=== PATIENT | male | born 1940 | race Caucasian/White ===

== ENCOUNTER → 2019-06-29 14:35 | Outpatient (BNVA) | payer MEDICARE, SELFPAY | PROVIDERS: Family Provider Pediatrics; PCP Pediatrics; Visit Provider Urology | DX: C67.8 Malignant neoplasm of overlapping sites of bladder (principal); R33.8 Other retention of urine | CPT/HCPCS: 81001 ==

== ENCOUNTER → 2019-11-02 15:13 | Outpatient (BNVA) | payer MEDICARE, SELFPAY | PROVIDERS: Family Provider Pediatrics; PCP Pediatrics; Visit Provider Urology | DX: C67.8 Malignant neoplasm of overlapping sites of bladder (principal) | CPT/HCPCS: 81001 ==

== ENCOUNTER → 2020-05-09 13:34 | Outpatient (BNVA) | payer MEDICARE, SELFPAY | PROVIDERS: Family Provider Pediatrics; PCP Pediatrics; Visit Provider Urology | DX: N40.1 Benign prostatic hyperplasia with lower urinary tract symptoms (principal); C67.8 Malignant neoplasm of overlapping sites of bladder | CPT/HCPCS: 81003; 88112 ==

== ENCOUNTER → 2020-12-20 09:41 | Outpatient (BNVA) | payer MEDICARE, SELFPAY | DX: N40.1 Benign prostatic hyperplasia with lower urinary tract symptoms (principal); C67.8 Malignant neoplasm of overlapping sites of bladder | CPT/HCPCS: 81003 ==

== ENCOUNTER → 2021-06-26 13:22 | Outpatient (BNVA) | payer MEDICARE, SELFPAY | PROVIDERS: Family Provider Pediatrics; PCP Pediatrics; Visit Provider Urology | DX: C67.9 Malignant neoplasm of bladder, unspecified (principal); C67.8 Malignant neoplasm of overlapping sites of bladder; N40.1 Benign prostatic hyperplasia with lower urinary tract symptoms | CPT/HCPCS: 81003; 88112 ==

== ENCOUNTER → 2021-08-27 13:09 | Outpatient (BNVA) | payer MEDICARE, SELFPAY | PROVIDERS: Family Provider Pediatrics; PCP Pediatrics; Visit Provider Urology | DX: C67.9 Malignant neoplasm of bladder, unspecified (principal); F17.220 Nicotine dependence, chewing tobacco, uncomplicated; C67.8 Malignant neoplasm of overlapping sites of bladder | CPT/HCPCS: 81003 ==

== ENCOUNTER → 2021-11-29 13:25 | Outpatient (BNVA) | payer MEDICARE, SELFPAY | PROVIDERS: Family Provider Pediatrics; PCP Pediatrics; Visit Provider Urology | DX: C67.8 Malignant neoplasm of overlapping sites of bladder (principal); N40.1 Benign prostatic hyperplasia with lower urinary tract symptoms | CPT/HCPCS: 52000; 81003; 88112 ==

== ENCOUNTER → 2022-03-14 14:10 | Outpatient (BNVA) | payer MEDICARE, SELFPAY | PROVIDERS: Family Provider Pediatrics; PCP Pediatrics; Visit Provider Urology | DX: N40.1 Benign prostatic hyperplasia with lower urinary tract symptoms (principal); C67.8 Malignant neoplasm of overlapping sites of bladder | CPT/HCPCS: 52000; 81003; 88112 ==

== ENCOUNTER → 2022-06-17 14:12 | Outpatient (BNVA) | payer MEDICARE, SELFPAY | PROVIDERS: Family Provider Pediatrics; PCP Pediatrics; Visit Provider Urology | DX: N40.1 Benign prostatic hyperplasia with lower urinary tract symptoms (principal); R33.9 Retention of urine, unspecified; C67.8 Malignant neoplasm of overlapping sites of bladder | CPT/HCPCS: 52000; 81003 ==

== ENCOUNTER 2023-02-22 09:50 | Emergency (ER) | payer MEDICARE, SELFPAY ==
[2023-02-22 10:04] VITALS: BP 172/76; PULSE 68; RESP 18; TEMP 37.7; O2SAT 97
--- NOTE | 2023-02-22 10:27 | XRR_ITS ---
PROCEDURE INFORMATION: Exam: XR Chest Exam date and time: 02/22/2023 10:35 AM Age: 82 years old Clinical indication: Cough TECHNIQUE: Imaging protocol: Radiologic exam of the chest. Views: 1 view. COMPARISON: CT abdomen pelvis wo/w [id number] 01/09/2017 10:22 AM FINDINGS: Lungs: Mild reticulation of the lung bases may represent atelectasis or scarring. No consolidation. Pleural spaces: Unremarkable. No pleural effusion. No pneumothorax. Heart/Mediastinum: Unremarkable. No cardiomegaly. Vasculature: Aortic arch atherosclerotic calcification. Bones/joints: Degenerative changes along the spine and acromioclavicular joints. XR/XR chest 1V portable [id number] IMPRESSION: No acute findings.
--- NOTE | 2023-02-22 10:28 | ED_ITS ---
HPI - General Adult General: Chief complaint: General Medical Stated complaint: sore throat Time Seen by Provider: 02/22/23 09:52 Source: patient Mode of arrival: ambulatory History of Present Illness: 82-year-old male presents to the emergency room with complaints of sore throat difficulty swallowing low-grade fever no rash. He is able to swallow fluids at any difficulty. He is mildly productive cough. He said it began after he took 2 doses of his blood pressure medication in a single day. Onset (ago): day(s) (4) Severity: mild Quality: sharp Pain Consistency: constant Relieving factors: none Exacerbating factors: none Associated symptoms: Deny chest pain, confusion, cough, diaphoresis, decreased appetite, dyspnea, fevers/chills, headache(s), malaise, nausea, rash, palpitations, seizures, short of breath, syncope, vomiting or weakness Treatments prior to arrival: none Review of Systems Const: Denies: fever(s), chills, malaise or diaphoresis ENMT: Reports: throat pain; Denies: ear or mastoid pain, nasal discharge or nasal congestion Card: Denies: chest pain, palpitations or syncope Resp: Denies: dyspnea GI: Denies: abdominal pain, nausea or vomiting : Denies: flank pain, dysuria, urinary frequency or urinary urgency Skin/Breast: Denies: rash Neuro: Denies: headache(s) or confusion PFSH ED PFSH: Medical History Benign prostatic hyperplasia with lower urinary tract symptoms Bladder cancer H/O hydrocele Surgical History H/O transurethral destruction of bladder lesion S/P appendectomy S/P hernia repair Family History Mother , 84 Stroke CAD (coronary artery disease) Hypertension Father , 81 Cancer bladder Brother Cancer Lung, colon Social History Smoking and tobacco status: former smoker Alcohol intake: current Alcohol intake frequency: few times a month Substance/Drug Use: never Marital status: Current occupational status: retired Physical Exam Const: GENERAL APPEARANCE: cooperative and comfortable ORIENTATION/CONSCIOUSNESS: Yes awake, Yes oriented to person, Yes oriented to place and Yes oriented to time HENMT: COMMON NORMALS: normocephalic, atraumatic, hearing grossly normal bilaterally, external ears normal, EAC's normal, TM's normal bilaterally and Normal nasal mucous membranes and turbinates present HEAD & SCALP: normocephalic and atraumatic NOSE: Normal nasal mucous membranes and turbinates present EXTERNAL EAR: Yes external ears normal [employer] Y CANAL: EAC's normal TYMPANIC MEMBRANE: TM's normal bilaterally Eye: COMMON NORMALS: Equal, round and reactive pupils present, EOMs intact bilaterally, conjunctivae normal and no scleral icterus CONJUNCTIVA: Yes conjunctivae normal PUPIL: Yes Equal, round and reactive pupils present Neck/C-Spine: COMMON NORMALS: full ROM, no lymphadenopathy, supple and no JVD Lymph: LYMPHATIC: no lymphadenopathy noted and no lymphedema noted Resp: COMMON NORMALS: normal respiratory effort, No retractions, No use of accessory muscles and clear to auscultation bilaterally AUSCULTATION: clear to auscultation bilaterally Cardio: COMMON NORMALS: no JVD, regular rate, regular rhythm and No murmurs present (Cardio) RATE: regular rate RHYTHM: regular rhythm GI: COMMON NORMALS: Soft to palpation and No hepatosplenomegaly present AUSCULTATION: Yes normoactive bowel sounds PALPATION: Yes Soft to palpation, No Tenderness to palpation present (GI), No Guarding due to palpation present (GI) and Yes No hepatosplenomegaly present Extremity: COMMON NORMALS: normal to inspection, capillary refill normal, no clubbing, cyanosis or edema, no calf tenderness and no pedal edema Neuro: SENSORIUM/ORIENTATION: Yes oriented to person, Yes oriented to place and Yes oriented to time Skin: COMMON NORMALS: no rashes or lesions noted GENERAL SKIN EXAM: no rashes or lesions noted Course Vital Signs: Vital signs: Vital Signs Temperature 100 F H 02/22/23 10:04 Pulse Rate 68 02/22/23 10:04 Respiratory Rate 18 02/22/23 10:04 Blood Pressure 172/76 02/22/23 10:04 Pulse Oximetry 97 02/22/23 10:04 Oxygen Delivery Me thod Room Air 02/22/23 10:04 [facility] - General Adult Medical Decision Making Rapid strep negative patient is able to swallow sam of fluids. Do not believe he has any obstruction he has no stridor. Chest x-ray unremarkable. White count normal we will start him on steroid taper and clindamycin follow-up with his primary care did give him 10 of dexamethasone here prior to discharge. Medical Records I reviewed the patient's medical records. Lab Data I reviewed the patient's lab results. 02/22/23 10:33 02/22/23 10:33 Radiology Impressions Chest X-Ray 02/22/23 10:27 IMPRESSION: No acute findings. Laboratory Results WBC 7.35 10^3/uL (3.29-11.43) 02/22/23 10:33 RBC 4.85 10^6/uL (3.85-5.65) 02/22/23 10:33 Hgb 15.50 g/dL (11.27-16.99) 02/22/23 10:33 Hct 46.7 % (37-53) 02/22/23 10:33 MCV 96.3 fl (82-101) 02/22/23 10:33 MCH 32.0 pg (27-33) 02/22/23 10:33 MCHC 33.2 g/dL (30-55) 02/22/23 10:33 RDW 12.8 % (12.1-15.1) 02/22/23 10:33 Plt Count 124 10^3/cmm (157-399) L 02/22/23 10:33 MPV 10.1 fL (7.4-10.4) 02/22/23 10:33 Neut % (Auto) 63.3 % 02/22/23 10:33 Lymph % (Auto) 20.7 % 02/22/23 10:33 [place] % (Auto) 15.4 % 02/22/23 10:33 Eos % (Auto) 0.0 % 02/22/23 10:33 Baso % (Auto) 0.3 % 02/22/23 10:33 Neut # (Auto) 4.66 10^3/uL (1.8-7.7) 02/22/23 10:33 Lymph # (Auto) 1.5 10^3/uL (0.8-4.8) 02/22/23 10:33 [place] # (Auto) 1.1 10^3/uL (0.2-0.9) H 02/22/23 10:33 Eos # (Auto) 0.0 10^3/uL (0.0-0.8) 02/22/23 10:33 Baso # (Auto) 0.0 10^3/uL (0.0-0.1) 02/22/23 10:33 Nucleated RBC % (auto) 0 % 02/22/23 10:33 Nucleated RBCs # 0.0 /100WBC 02/22/23 10:33 Sodium 138 mmol/L (136-145) 02/22/23 10:33 Potassium 3.2 mmol/L (3.5-5.1) L 02/22/23 10:33 Chloride 99 mmol/L (98-107) 02/22/23 10:33 Carbon Dioxide 27 mmol/L (22-29) 02/22/23 10:33 Anion Gap 15.2 (5-19) 02/22/23 10:33 BUN 19 mg/dL (8-23) 02/22/23 10:33 Creatinine 0.9 mg/dL (0.7-1.2) 02/22/23 10:33 GFR Calculation Not Reportable 02/22/23 10:33 Glucose 95 mg/dL (65-115) 02/22/23 10:33 Calculated Osmolality 288 mOsm/kg (285-295) 02/22/23 10:33 Calcium 9.1 mg/dL (8.5-10.5) 02/22/23 10:33 Total Bilirubin 0.6 mg/dL (0.15-1.2) 02/22/23 10:33 AST 38 U/L (0-40) 02/22/23 10:33 ALT 28 U/L (0-41) 02/22/23 10:33 Alkaline Phosphatase 64 U/L (40-130) 02/22/23 10:33 Total Protein 7.0 g/dL (6.6-8.7) 02/22/23 10:33 Albumin 3.9 g/dL (3.5-5.2) 02/22/23 10:33 Globulin 3.1 g/dL (1.3-4.6) 02/22/23 10:33 Urine Color Dara (Yellow) 02/22/23 11:00 Urine Appearance Clear (CLEAR) 02/22/23 11:00 Urine pH 6 (5-7) 02/22/23 11:00 Ur Specific [place] 1.015 (1.005-1.030) 02/22/23 11:00 Urine Protein 1+ (Negative) H 02/22/23 11:00 Urine Glucose (UA) Norm (Normal) 02/22/23 11:00 Urine Ketones 2+ (Negative) H 02/22/23 11:00 Urine Blood 3+ (Negative) H 02/22/23 11:00 Urine Nitrate Negative (Negative) 02/22/23 11:00 Urine Bilirubin 1+ (Negative) H 02/22/23 11:00 Urine Urobilinogen Norm mg/dL (Negative) 02/22/23 11:00 Ur Leukocyte Esterase Negative (Negative) 02/22/23 11:00 Urine RBC >100 /hpf (0-2) H 02/22/23 11:00 Urine WBC 5-10 /hpf (0-5) H 02/22/23 11:00 Ur Squamous Epith Cells 0-4 /hpf (0-5) H 02/22/23 11:00 Amorphous Sediment Not Reportable 02/22/23 11:00 Urine Bacteria Trace /hpf (NONE) 02/22/23 11:00 Group A Strep Rapid Negative (Negative) 02/22/23 10:36 All radiology interpretation(s) finalized by discharge Discharge Plan Discharge Patient Disposition: Home Clinical Impression: Pharyngitis Condition: Stable Prescriptions: New Medrol (Toan) 4 mg tablets,dose pack See Rx Instructions .ROUTE .COMPLEX Qty: 21 0RF Rx Instructions: orally per package directions clindamycin HCl 300 mg capsule 300 mg PO QID 10 Days Qty: 40 0RF No Action visishield eye-both DAILY aspirin [Aspir-Low] 81 mg tablet,delayed release (DR/EC) 81 mg PO QDAY latanoprost 0.005 % drops 1 drop ophthalmic (eye) QDAY omega-3 fatty acids [Fish Oil Concentrate] 1,000 mg capsule 1,000 mg PO QDAY hydrochlorothiazide 25 mg tablet 25 mg PO QDAY clonidine HCl 0.2 mg tablet 0.2 mg PO QDAY sertraline 25 mg tablet 25 mg PO QDAY losartan 25 mg tablet 25 mg PO QDAY simvastatin 20 mg tablet 40 mg PO QDAY pyridoxine (vitamin B6) 50 mg tablet 50 mg PO DAILY cefuroxime axetil 500 mg tablet 500 mg PO BID Qty: 10 1RF tamsulosin 0.4 mg capsule See Rx Instructions .ROUTE .COMPLEX Qty: 60 12RF Dose Instruction: Take 1 capsule by mouth twice daily Rx Instructions: Take 1 capsule by mouth twice daily Discharge Orders: Discharge ED (Routine); Ordered 02/22/23 Ordered By: Jose Alfredo Delvalle Referrals: Marlee Padron MD [Primary Care Provider] - Discharge Diet: Usual diet Discharge Activity: Increase activity as tolerated Patient Instructions: Opioid Safety, Pain Management Coding Level of Care Code ED Rotary Cutter for Edgard Brennan
[2023-02-22 10:43] LABS: Basophils % 0.3 %; Hematocrit 46.7 % (37-53); Lymphocytes # 1.5 10^3/uL (0.8-4.8); Lymphocytes % 20.7 %; Mean Corpuscular HGB Conc 33.2 g/dL (30-55); Mean Corpuscular Volume 96.3 fl (82-101); Mean Platelet Volume 10.1 fL (7.4-10.4); Monocytes # 1.1 10^3/uL (0.2-0.9); Monocytes % 15.4 %; Neutrophils # 4.66 10^3/uL (1.8-7.7); Neutrophils % 63.3 %; Nucleated Red Blood Cells % 0 %; Platelet Count 124 10^3/cmm (157-399); Red Blood Count 4.85 10^6/uL (3.85-5.65); Red Cell Distribution Width 12.8 % (12.1-15.1); White Blood Count 7.35 10^3/uL (3.29-11.43)
[2023-02-22 10:59] LABS: Rapid Strep A Test Negative (Negative)
[2023-02-22 11:06] LABS: Alanine Aminotransferase 28 U/L (0-41); Albumin Level 3.9 g/dL (3.5-5.2); Alkaline Phosphatase 64 U/L (40-130); Anion Gap 15.2 (5-19); Aspartate Amino Transferase 38 U/L (0-40); Blood Urea Nitrogen 19 mg/dL (8-23); Calcium 9.1 mg/dL (8.5-10.5); Carbon Dioxide 27 mmol/L (22-29); Chloride 99 mmol/L (98-107); Globulin 3.1 g/dL (1.3-4.6); Glucose 95 mg/dL (65-115); Osmolality Calculated 288 mOsm/kg (285-295); Potassium 3.2 mmol/L (3.5-5.1); Sodium 138 mmol/L (136-145); Total Bilirubin 0.6 mg/dL (0.15-1.2)
[2023-02-22 11:46] LABS: Add Urine Microscopic? YES; Bacteria Urine TRACE /hpf; Bilirubin Urine 1+ (Negative); Blood Urine 3+ (Negative); Glucose Urine UA Norm (Normal); Ketones Urine 2+ (Negative); Leukocyte Esterase Urine Negative (Negative); Nitrate Urine Negative (Negative); Protein Urine 1+ (Negative); RBC Urine >100 /hpf (0-2); Specific Gravity, Urine 1.015 (1.005-1.030); Squamous Epithelial Cell Urine 0-4 /hpf (0-5); Urine Appearance Clear (CLEAR); Urine Color Amber (Yellow); Urobilinogen Urine Norm (Negative); pH Urine 6 (5-7)
[2023-02-22 11:47] LABS: Add Urine Culture? Yes
[2023-02-22] MEDS: dexamethasone 10 mg/mL INJ IVP (12:41)
== END 2023-02-22 13:04 | disposition home or self-care (01) ==
PROVIDERS: Emergency Provider Family Medicine; Family Provider Pediatrics; PCP Pediatrics
DX: J02.9 Acute pharyngitis, unspecified (principal); Z79.82 Long term (current) use of aspirin; Z87.891 Personal history of nicotine dependence; Z85.51 Personal history of malignant neoplasm of bladder
CPT/HCPCS: 36415; 71045; 80053; 81001; 85025; 87081; 87086; 87880; 96374; 99284; J1100